=== PATIENT | male | born 1975 | race Two or more races ===

== ENCOUNTER 2021-10-13 18:47 | Emergency (ER) | payer MEDICAID ==
[~2021-10-13] VITALS: Ht 172.7 cm; Wt 108.9 kg
--- NOTE | 2021-10-13 19:57 | NUR ---
BIBS C/O DIARRHEA X6DAYS. "UNABLE TO HOLD ANYTHING DOWN" +N/V WITH DIFFUSED ABD PAIN AND LEFT FLANK PAIN X1 DAY. PATIENT ALERT AND ORIENTED X3. AMBULATORY WITH NON LABORED BREATHING PLACED IN BED 11 TIFFANIE MONITOR
[2021-10-13] MEDS ORDERED: ONDANSETRON HCL/PF 4 MG/2 ML VIAL IVP ONE (20:00)
[2021-10-13] MEDS ORDERED: IV NS 0.9% 1,000 ML BAG IV ONE (20:00)
[2021-10-13] MEDS ORDERED: ONDANSETRON HCL/PF 4 MG/2 ML VIAL ONE (20:44)
--- NOTE | 2021-10-13 20:45 | NUR ---
LAC #20G S/L; PATENT AND INTACT. SOFTWARE ENGINEER DEVELOPER AT PT'S BEDSIDE
[2021-10-13 20:46] LABS: BASOPHILS # (AUTO) 0.1 K/uL (0.0-0.2); BASOPHILS % (AUTO) 0.6 % (0.0-2.0); EOSINOPHILS % (AUTO) 3.6 % (0.0-6.0); HEMATOCRIT 46 % (39-51); LYMPHOCYTES # (AUTO) 1.7 K/uL (0.8-4.8); LYMPHOCYTES % (AUTO) 13.6 % (20.0-44.0); MEAN CORPUSCULAR HGB CONC 33 g/dl (31.0-36.0); MEAN CORPUSCULAR VOLUME 86 fL (80-96); MONOCYTES # (AUTO) 1.3 K/uL (0.1-1.30); MONOCYTES % (AUTO) 10.1 % (2.0-12.0); NEUTROPHILS # (AUTO) 9.3 K/uL (1.8-8.9); NEUTROPHILS % (AUTO) 72.1 % (43.0-81.0); PLATELET COUNT (AUTO) 287 K/uL (150-450); RED BLOOD CELL COUNT(AUTO) 5.32 MIL/uL (4.5-6.0); WHITE BLOOD COUNT (AUTO) 12.8 K/uL (4.3-11.0)
[2021-10-13 21:05] LABS: BILIRUBIN,DIRECT 0.1 mg/dL (0.0-0.2); BILIRUBIN,TOTAL 0.4 mg/dL (0.2-1.0); CALCIUM, SERUM 9.5 mg/dL (8.5-10.1); CREATININE 1.2 mg/dL (0.6-1.3); POTASSIUM 3.6 mmol/L (3.5-5.1); TOTAL PROTEIN, SERUM 8.8 g/dL (6.4-8.2)
[2021-10-13] MEDS ORDERED: ONDA4TAB11 PO (21:39)
[2021-10-13] MEDS ORDERED: CIPR500T5 PO (21:39)
[2021-10-13] MEDS ORDERED: METR-147 PO (21:39)
[2021-10-13] MEDS ORDERED: KETOROLAC TROMETHAMINE INJ 30 MG/ML VIAL ONE (21:41)
[2021-10-13] MEDS ORDERED: methylPREDNISolone SOD SUCC 125 MG/2ML VIAL ONE (21:41)
[2021-10-13] MEDS ORDERED: CIPROFLOXACIN HCL 500 MG TABLET ONE (21:42)
[2021-10-13] MEDS ORDERED: METRONIDAZOLE 500 MG TABLET ONE (21:42)
[2021-10-13] MEDS ORDERED: KETOROLAC TROMETHAMINE INJ 30 MG/ML VIAL IV ONE (22:00)
[2021-10-13] MEDS ORDERED: methylPREDNISolone SOD SUCC 125 MG/2ML VIAL IV ONE (22:00)
[2021-10-13] MEDS ORDERED: CIPROFLOXACIN HCL 250 MG TABLET PO ONE (22:00)
[2021-10-13] MEDS ORDERED: METRONIDAZOLE 500 MG TABLET PO ONE (22:00)
--- NOTE | 2021-10-13 23:00 | NUR ---
Patient discharged to home in stable condition. Written and verbal after care instructions given. Patient verbalizes understanding of instruction.
[2021-10-13 23:01] VITALS: BP 120/60
== END 2021-10-13 23:03 | disposition home or self-care (01) ==
LOC: ER 18:56
DX: A08.8 Other specified intestinal infections (principal); K52.9 Noninfective gastroenteritis and colitis, unspecified; Z79.899 Other long term (current) drug therapy
CPT/HCPCS: 36415; 74176; 80048; 80076; 83690; 85025; 96361; 96374; 96375; 99284; J1885; J2405; J2930; J7030

== ENCOUNTER 2024-06-05 10:01 | Emergency (ER) | payer MEDICAID ==
[~2024-06-05] VITALS: Ht 172.7 cm; Wt 127.9 kg
[~2024-06-05 10:01] MED LIST: CIPR500T5 PO; METR-147 PO; ONDA4TAB11 PO
[2024-06-05 11:16] VITALS: BP 129/91; TEMP 98.6
[2024-06-05] MEDS: LIDOCAINE 5% (PATCH) 1 EA PATCH TP STA (11:25)
[2024-06-05] MEDS: KETOROLAC TROMETHAMINE 15 MG/ML VIAL IM ONE (11:30)
[2024-06-05] MEDS ORDERED: KETOROLAC TROMETHAMINE 15 MG/ML VIAL ONE (11:36)
[2024-06-05] MEDS ORDERED: LIDOCAINE 5% (PATCH) 1 EA PATCH TP ONE (11:36)
[2024-06-05] MEDS ORDERED: CYCL5TAB PO (11:39)
[2024-06-05] MEDS ORDERED: LIDO30AD10 TP (11:39)
[2024-06-05] MEDS ORDERED: IBUP-1955 PO (11:39)
[2024-06-05 11:44] VITALS: O2SAT 96
== END 2024-06-05 11:43 | disposition home or self-care (01) ==
LOC: ER 10:05
DX: M54.6 Pain in thoracic spine (principal)
CPT/HCPCS: 99283; 96372; J1885

== ENCOUNTER 2025-08-07 21:27 | Emergency (ER) | payer MEDICAID ==
[~2025-08-07] VITALS: Ht 172.7 cm; Wt 132.4 kg
[~2025-08-07 21:27] MED LIST changes: +CYCL5TAB PO; +IBUP-1955 PO; +LIDO30AD10 TP
[2025-08-07] MEDS ORDERED: HYDROCODONE/APAP 10/325MG TABLET ONE (23:06)
[2025-08-07] MEDS ORDERED: IBUPROFEN 400 MG TABLET ONE (23:07)
[2025-08-07] MEDS: HYDROCODONE/APAP 10/325MG TABLET PO ONE (23:09)
[2025-08-07] MEDS: IBUPROFEN 400 MG TABLET PO ONE (23:10)
[2025-08-08] MEDS ORDERED: HYDR-3980 PO (01:13)
[2025-08-08 01:50] VITALS: BP 136/80; TEMP 98.4; O2SAT 99
== END 2025-08-08 01:50 | disposition home or self-care (01) ==
LOC: ER 21:30
DX: S52.121A Displaced fracture of head of right radius, initial encounter for closed fracture (principal); S52.122A Displaced fracture of head of left radius, initial encounter for closed fracture; W18.30XA Fall on same level, unspecified, initial encounter; Y93.89 Activity, other specified; Y92.89 Other specified places as the place of occurrence of the external cause; Y99.9 Unspecified external cause status
CPT/HCPCS: 71100-TC; 73030-TC; 73060-TC; 73080-TC; 73090-TC; 73110; 73200-TC; 73610-TC